=== PATIENT | female | born 1980 | race Caucasian/White ===

== ENCOUNTER 2020-05-26 05:34 | Observation (INO) ==
[2020-05-26] MEDS ORDERED: ONDANSETRON 4 MG/2 ML VIAL IV STA (06:20)
[2020-05-26] MEDS ORDERED: SODIUM CHLORIDE 0.9% 1,000 ML IV STA (06:20)
[2020-05-26] MEDS ORDERED: HYDROmorphone 2 MG/1 ML VIAL IV STA (06:20)
[2020-05-26] MEDS ORDERED: MORPHINE 4 MG/1 ML VIAL ONE (06:35)
[2020-05-26 06:37] LABS: Basophils # 0.1 10*3/uL (0.0-0.2); Basophils % 0.4 % (0.0-0.8); Eosinophils % 0.3 % (0.00-10.9); Hematocrit 45.8 VOL% (35.7-47.0); Immature Granulocytes % 0.5 %; Immature Granulocytes Absolute 0.08 #; Lymphocytes # 2.1 10*3/uL (1.4-4.0); Lymphocytes % 13.1 % (21.3-54.2); Mean Corpuscular HGB Conc 32.8 GM/DL (32-36); Mean Corpuscular Volume 89.1 FL (87-102); Mean Platelet Volume 10.9 FL (9.6-12.0); Monocytes % 4.2 % (1.7-12.7); Neutrophils % 81.5 % (38.7-73.9); Platelet Count 336 T/CUMM (130-400); Red Blood Count 5.14 MC/CUMM (3.8-5.5); Red Cell Distribution Width 12.9 % (9.3-17.3); White Blood Count 15.9 T/CUMM (4-12)
[2020-05-26] MEDS ORDERED: MORPHINE 4 MG/1 ML VIAL IV STA ×2 (06:43→07:39)
[2020-05-26 06:58] LABS: Alanine Aminotransferase 20 U/L (13-56); Albumin 3.2 G/DL (3.4-5.0); Alkaline Phosphatase 69 U/L (45-117); Aspartate Amino Transferase 18 U/L (0-37); Blood Urea Nitrogen 13 MG/DL (7-18); Calcium 9.1 MG/DL (8.5-10.1); Estimated Glom Filtration Rate 101 ML/MIN; Glucose 110 MG/DL (74-106); Osmolality,Calculated 273.8 MOS/KG (273-304); Total Protein 7.8 G/DL (6.4-8.3)
[2020-05-26 07:05] LABS: Apearance,Urine CLEAR (Clear); Bilirubin,Urine Negative (Negative); Blood, Urine Negative (Negative); Glucose,Urine (UA) Negative (Negative); Ketones,Urine Negative (Negative); Mucus,Urine Occasional /LPF (Occasional); Nitrite,Urine Negative (Negative); Protein,Urine Negative; RBC,Urine 3 /HPF (0-4); Squamous Epithelial Cell,Urine Occasional /HPF (0-10); Urine Color Yellow (Yellow); Urine Specific Gravity 1.024 (1.001-1.035); Urine Urobilinogen < 2.0 EU/DL (0.2-1.0); WBC,Urine 1 /HPF (0-6)
[2020-05-26] MEDS ORDERED: TISSUE ADHESIVE 1 EACH APPLICATOR TOP ONE (09:31)
[2020-05-26] MEDS ORDERED: LIDOCAINE 1%/EPI INJ 20 ML VIAL ONE (09:31)
[2020-05-26] MEDS ORDERED: BUPIVACAINE MPF 0.25% 30 ML VIAL ONE (09:31)
[2020-05-26] MEDS ORDERED: LACTATED RINGERS 1,000 ML IV ONE (09:34)
[2020-05-26] MEDS ORDERED: PIPERACILLIN/TAZOBACTAM 3,375 MG in SODIUM CHLORIDE 0.9% 100 ML IV STA (09:34)
[2020-05-26] MEDS: POTASSIUM CHLORIDE RIDER 10 MEQ in PREMIX 1 EACH IV SCH ×2 (10:00→18:19)
[2020-05-26] MEDS ORDERED: MORPHINE 4 MG/1 ML VIAL IV PRN (11:48)
[2020-05-26] MEDS ORDERED: diphenhydrAMINE CAP 25 MG CAPSULE PO PRN (11:48)
[2020-05-26] MEDS ORDERED: ACETAMINOPHEN 325 MG TABLET PO PRN (11:48)
[2020-05-26] MEDS ORDERED: ONDANSETRON 4 MG/2 ML VIAL IV PRN (11:48)
[2020-05-26] MEDS ORDERED: LORATADINE 10 MG TABLET PO PRN (11:48)
[2020-05-26] MEDS ORDERED: ALBUTEROL 2.5 MG/3 ML NEB RESP TX PRN (11:48)
[2020-05-26] MEDS ORDERED: SIMETHICONE CHEW 125 MG TABLET PO PRN (11:48)
[2020-05-26] MEDS ORDERED: PROMETHAZINE 25 MG/1 ML VIAL IM PRN (11:48)
[2020-05-26] MEDS ORDERED: CYANOCOBALAMIN 1000 MCG/1 ML VIAL IM SCH (11:48)
[2020-05-26] MEDS: KETOROLAC 15 MG/1 ML VIAL IV SCH ×3 (14:07→23:50)
[2020-05-26] MEDS: LACTATED RINGERS 1,000 ML IV SCH (14:19)
[2020-05-26] MEDS: MUPIROCIN 2% OINT 22 GM TUBE TOP SCH ×2 (14:32→21:08)
[2020-05-26] MEDS: PIPERACILLIN/TAZOBACTAM 3,375 MG in SODIUM CHLORIDE 0.9% 100 ML IV SCH ×2 (14:32→21:14)
[2020-05-26] MEDS ORDERED: LACTOBACILLUS RHAMNOSUS GG CAPSULE PO SCH (21:00)
[2020-05-26] MEDS ORDERED: TRIAMCINOLONE ACETONIDE TOP SCH (21:00)
[2020-05-26] MEDS: FAMOTIDINE 20 MG TABLET PO SCH (21:08)
[2020-05-26] MEDS: KETOCONAZOLE 2% CREAM 30 GM TUBE TOP SCH (21:08)
[2020-05-27] MEDS: LACTATED RINGERS 1,000 ML IV SCH ×3 (01:27→12:48)
[2020-05-27] MEDS ORDERED: ENOXAPARIN 40 MG/0.4 ML SYRINGE SUBCUT SCH (03:52)
[2020-05-27] MEDS: KETOROLAC 15 MG/1 ML VIAL IV SCH ×2 (05:56→11:51)
[2020-05-27] MEDS: PIPERACILLIN/TAZOBACTAM 3,375 MG in SODIUM CHLORIDE 0.9% 100 ML IV SCH (05:58)
[2020-05-27 06:44] LABS: Basophils # 0.1 10*3/uL (0.0-0.2); Basophils % 0.9 % (0.0-0.8); Eosinophils # 0.3 10*3/uL (0.0-0.87); Eosinophils % 3.5 % (0.00-10.9); Hematocrit 37.3 VOL% (35.7-47.0); Immature Granulocytes % 0.1 %; Immature Granulocytes Absolute 0.01 #; Lymphocytes # 3.4 10*3/uL (1.4-4.0); Lymphocytes % 45.8 % (21.3-54.2); Mean Corpuscular HGB Conc 32.7 GM/DL (32-36); Mean Platelet Volume 11.1 FL (9.6-12.0); Monocytes % 7.2 % (1.7-12.7); Neutrophils % 42.5 % (38.7-73.9); Platelet Count 270 T/CUMM (130-400); Red Blood Count 4.19 MC/CUMM (3.8-5.5); Red Cell Distribution Width 13.2 % (9.3-17.3)
[2020-05-27 06:45] LABS: Hemoglobin 12.2 GM/DL (12.0-16.0); White Blood Count 7.4 T/CUMM (4-12)
[2020-05-27 06:54] LABS: Albumin 2.4 G/DL (3.4-5.0); Bilirubin,Total 0.8 MG/DL (0.2-1.0); Calcium 8.2 MG/DL (8.5-10.1); Osmolality,Calculated 277.3 MOS/KG (273-304); Total Protein 5.9 G/DL (6.4-8.3)
[2020-05-27] MEDS ORDERED: CHOLECALCIFEROL 5,000 UNIT TABLET PO SCH (09:00)
[2020-05-27] MEDS ORDERED: [UNRECOGNIZED DRUG - OTHER] PO SCH (09:00)
[2020-05-27] MEDS ORDERED: PANTOPRAZOLE 40 MG TABLET PO SCH (09:00)
[2020-05-27] MEDS ORDERED: hydroCHLOROthiazide 25 MG TABLET PO SCH (09:00)
[2020-05-27] MEDS ORDERED: THYROID 60 MG TABLET PO SCH (09:00)
[2020-05-27] MEDS: FAMOTIDINE 20 MG TABLET PO SCH (09:31)
[2020-05-27] MEDS: MUPIROCIN 2% OINT 22 GM TUBE TOP SCH (09:31)
[2020-05-27] MEDS: KETOCONAZOLE 2% CREAM 30 GM TUBE TOP SCH (09:32)
[2020-05-27 11:21] VITALS: BP 124/71
== END 2020-05-27 16:00 | disposition home or self-care (01) ==
LOC: N.EDINP 05:34 → N.ED 05:34 → N.3E 11:38
PROVIDERS: ADMIT Surgery; ATTEND Surgery
PROC: LAPCHOL (2020-05-26 09:25)